=== PATIENT | male | born 1955 | race African-American/Black ===

== ENCOUNTER → 2017-02-26 | Outpatient (CLI) | payer BC ==
[~2017-02-26] VITALS: Ht 193 cm; Wt 84.3 kg
[~2017-02-26] MED LIST: DEPO-TESTOS200 MG/M1 IM; HYDROCHLOROTH12.5 M2 PO; LIPITOR20 MG PO; MAVIK1 MG PO; MAVIK2 M1 PO; VERAPAMIL240 MG/TAB PO
[2017-02-26 10:00] VITALS: BP 116/74
== END ==
LOC: AMSURD 09:40
DX: Z00.00 Encounter for general adult medical examination without abnormal findings (principal)

== ENCOUNTER → 2017-02-26 | Outpatient (REF) ==
[2015-07-04 09:05] VITALS: BP 133/88
== END ==
LOC: LAB 09:38
DX: Z00.00 Encounter for general adult medical examination without abnormal findings (principal)

== ENCOUNTER → 2018-03-03 | Outpatient (CLI) | payer BC ==
[~2018-03-03] VITALS: Ht 193 cm; Wt 85.5 kg
[2018-03-03 09:52] VITALS: BP 110/72
== END ==
LOC: AMSURD 09:11
DX: Z00.00 Encounter for general adult medical examination without abnormal findings (principal)

== ENCOUNTER → 2018-06-27 | Outpatient (CLI) | payer BC ==
[2018-03-03 09:52] VITALS: BP 110/72
== END ==
LOC: RAD 06-23 09:30
DX: K76.0 Fatty (change of) liver, not elsewhere classified (principal); R74.8 Abnormal levels of other serum enzymes

== ENCOUNTER → 2024-09-21 | Outpatient (CLI) | payer BC ==
[2024-09-21 12:34] LABS: BASO # 0.02 K/mm3 (0.02-0.10); EOS % 2.1 % (0.0-4.0); HEMATOCRIT 38.7 % (42.0-52.0); HEMOGLOBIN 12.7 g/dL (13.5-18.0); LYMPH# 2.24 K/mm3 (1.50-4.00); MEAN CELL VOLUME 86 fl (78-100); MEAN CORPUSCULAR HEMOGLOBIN 28 pg (27-31); MEAN CORPUSCULAR HGB CONC 33 g/dL (33-37); MEAN PLATELET VOLUME 8.6 fl (7.4-10.4); MONO # 1.38 K/mm3 (0.20-0.80); NEU # 9.99 K/mm3 (1.40-6.50); PLATELET COUNT 418 K/mm3 (130-400); RED CELL DISTRIBUTION WIDTH 15.1 % (11.5-14.5); WHITE BLOOD COUNT 14.5 K/mm3 (4.8-10.8)
[2024-09-21 12:37] LABS: ALBUMIN 3.6 g/dL (3.4-4.8); PH-URINE 5.5 (5.0 - 8.0); URINE APPEARANCE CLEAR (CLEAR); URINE BILIRUBIN NEGATIVE (NEGATIVE); URINE COLOR YELLOW (YELLOW); URINE GLUCOSE NEGATIVE (NEGATIVE); URINE KETONE NEGATIVE (NEGATIVE); URINE PROTEIN(semi-quant) NEGATIVE (NEGATIVE)
[2024-09-21 12:38] LABS: URINE BLOOD NEGATIVE (NEGATIVE); URINE LEUKOCYTE ESTERASE 1+ (NEGATIVE); URINE NITRATE NEGATIVE (NEGATIVE)
[2024-09-21 12:39] LABS: CALCIUM 9.9 mg/dL (8.3-10.5)
[2024-09-21 12:40] LABS: TOTAL PROTEIN 7.2 g/dL (6.2-8.1)
[2024-09-21 12:42] LABS: TOTAL BILIRUBIN 0.2 mg/dL (0.2-1.2)
[2024-09-21 12:45] LABS: URINE MUCUS PRESENT (NOT PRESENT)
[2024-09-21 12:46] LABS: MAGNESIUM 1.96 mg/dL (1.60-2.60)
== END ==
LOC: LAB 12:16
PROVIDERS: Internal Medicine
DX: N39.0 Urinary tract infection, site not specified (principal); R65.21 Severe sepsis with septic shock; I10 Essential (primary) hypertension